=== PATIENT | female | born 1995 | race Caucasian/White ===

== ENCOUNTER 2017-05-16 18:02 | Emergency (ER) | payer BC ==
[~2017-05-16] VITALS: Ht 162.6 cm; Wt 73.1 kg
[2017-05-16 19:30] LABS: EOSINOPHIL (%) 2.9 % (0-5); EOSINOPHIL COUNT 0.3 K/uL (0-0.3); HEMATOCRIT 37.6 % (36.0-46.0); IMMATURE GRANULOCYTE (%) 0.4 % (0.0-0.7); IMMATURE GRANULOCYTE COUNT 0.1 K/uL; INSTRUMENT ABS NEUTROPHIL CT 8.7 K/uL; LYMPHOCYTE COUNT 2.1 K/uL (1.0-2.8); MCHC 32.4 G/DL (30.0-36.0); MCV 83.2 FL (83-99); MEAN PLAT.VOLUME 10.5 uM^3 (9.5-12.4); MONOCYTE COUNT 0.7 K/uL (0-0.8); NEUTROPHIL (%) 72.8 % (45-76); NEUTROPHIL COUNT 8.7 K/uL (1.8-6.4); PLATELET COUNT 303 K/uL (156-360); RBC DIS.WIDTH-CV 14.1 % (11.8-14.6); RBC DIS.WIDTH-SD 42.9 % (39-53); RED BLOOD COUNT 4.52 M/uL (3.80-5.20); WHITE BLOOD COUNT 11.9 K/uL (4.1-10.2)
[2017-05-16 19:38] LABS: CHLORIDE 107 mEq/L (99-109); POTASSIUM 3.5 mEq/L (3.7-5.4); SODIUM 141 mEq/L (136-147)
[2017-05-16 19:40] LABS: GLUCOSE 113 mg/dL (70-99)
[2017-05-16 19:41] LABS: ANION GAP 10 MEQ/L (2-14)
[2017-05-16 19:42] LABS: TOTAL BILIRUBIN 0.1 mg/dL (0.0-1.0)
[2017-05-16 19:43] LABS: SERUM ETHYL ALCOHOL < 10 mg/dL
[2017-05-16 19:44] LABS: ALKALINE PHOSPHATASE 88 IU/L (3-129); GFR ESTIMATE (CALCULATED) > 59 mL/min/
[2017-05-16 19:45] LABS: UREA NITROGEN (BUN) 11 mg/dL (9-23)
[2017-05-16 19:52] LABS: QUANTITATIVE HCG < 4.0 MIU/ML
[2017-05-16 21:23] LABS: ADD MIUA? YES; BILIRUBIN NEGATIVE; BLOOD MODERATE; COLOR YELLOW ((YELLOW)); GLUCOSE (STRIP) NEGATIVE; KETONES NEGATIVE; LEUKOCYTES NEGATIVE; NITRITE NEGATIVE; PROTEIN (STRIP) 30; UROBILINOGEN 0.2 MG/DL (0.2-1.0)
[2017-05-16 21:31] LABS: AMPHETAMINE NEGATIVE (500 ng/mL); BARBITURATES NEGATIVE (200 ng/mL); BENZODIAZEPINES NEGATIVE (150 ng/mL); COCAINE NEGATIVE (150 ng/mL); INTERNAL CONTROLS VALID? YES; METHADONE NEGATIVE (200 ng/mL); METHAMPHETAMINE NEGATIVE (500 ng/mL); OPIATES (MORPHINE) NEGATIVE (100 ng/mL); OXYCODONE NEGATIVE (100 ng/mL); PHENCYCLIDINE NEGATIVE (25 ng/mL); PROPOXYPHENE NEGATIVE (300 ng/mL); THC CANNABINOIDS NEGATIVE (50 ng/mL); TRICYCLIC ANTIDEPRESSANTS NEGATIVE (300 ng/mL)
[2017-05-16 21:44] LABS: RED BLOOD CELLS 15-20 /HPF (0-5)
[2017-05-16 21:45] LABS: AMORPHOUS URATES CRYSTALS 1+; BACTERIA 2+ /HPF; CASTS NONE SEEN /LPF; CRYSTALS PRESENT; EPITHELIAL CELLS RARE /HPF; MUCUS NONE SEEN /LPF; UCUL ADDED? YES; WHITE BLOOD CELLS 0-5 /HPF (0-5)
[2017-05-17 14:44] VITALS: BP 126/75
== END 2017-05-17 14:47 ==
LOC: EME 18:02
PROVIDERS: Emergency Medicine
DX: R45.851 Suicidal ideations (principal); F33.2 Major depressive disorder, recurrent severe without psychotic features; F17.200 Nicotine dependence, unspecified, uncomplicated
CPT/HCPCS: 80053; 81003; 84702; 85025; 87086; 90837; 93005; 99281; 99285; G0480

== ENCOUNTER 2018-04-26 19:32 | Emergency (ER) | payer BC ==
[~2018-04-26] VITALS: Ht 162.6 cm; Wt 73.0 kg
[2018-04-26 21:59] LABS: HEMATOCRIT 33.3 % (36.0-46.0); HEMOGLOBIN 10.9 G/DL (11.9-15.5); MCH 26.3 PG (29.0-34.0); MCHC 32.7 G/DL (30.0-36.0); MCV 80.2 FL (83-99); PLATELET COUNT 296 K/uL (156-360); RBC DIS.WIDTH-CV 15.9 % (11.8-14.6); RBC DIS.WIDTH-SD 46.1 % (39-53); RED BLOOD COUNT 4.15 M/uL (3.80-5.20); WHITE BLOOD COUNT 12.8 K/uL (4.1-10.2)
[2018-04-26 22:10] LABS: CHLORIDE 106 mEq/L (99-109); POTASSIUM 3.7 mEq/L (3.7-5.4); SODIUM 140 mEq/L (136-147)
[2018-04-26 22:12] LABS: GLUCOSE 98 mg/dL (70-99); TOTAL PROTEIN 6.9 g/dL (6.4-8.3)
[2018-04-26 22:14] LABS: TOTAL BILIRUBIN 0.2 mg/dL (0.0-1.0)
[2018-04-26 22:16] LABS: ALKALINE PHOSPHATASE 88 IU/L (3-129); CREATININE 0.9 mg/dL (0.6-1.3); GFR ESTIMATE (CALCULATED) > 59 mL/min/
[2018-04-26 22:17] LABS: UREA NITROGEN (BUN) 11 mg/dL (9-23)
[2018-04-26 22:18] LABS: AST (GOT) 16 IU/L (2-34)
[2018-04-26 22:19] LABS: ALT (GPT) 14 IU/L (3-49)
[2018-04-26 22:27] LABS: QUANTITATIVE HCG < 4.0 MIU/ML
[2018-04-26 22:39] LABS: MONOSPOT (MONONUCLEOSIS SEROL) NEGATIVE
[2018-04-27] MEDS ORDERED: BENTYL10 MG PO (00:25)
[2018-04-27 00:37] VITALS: BP 151/93
== END 2018-04-27 00:38 | disposition home or self-care (01) ==
LOC: EME 19:32
PROVIDERS: Physician Assistant Medical
DX: R10.11 Right upper quadrant pain (principal); R10.12 Left upper quadrant pain
CPT/HCPCS: 71046; 76705; 80053; 84702; 85027; 86308; 99281; 99283